=== PATIENT | male | born 1945 | race Two or more races ===

== ENCOUNTER → 2017-11-09 16:26 | Outpatient (CLI) | payer OTHER | END | disposition home or self-care (01) | LOC: LAB 16:26 | DX: R97.20 Elevated prostate specific antigen [PSA] (principal) ==

== ENCOUNTER 2017-12-21 07:09 | Outpatient (CLI) | payer OTHER | END 2017-12-21 07:20 | disposition home or self-care (01) | LOC: SONOGRAMA 07:09 | DX: R97.20 Elevated prostate specific antigen [PSA] (principal) ==

== ENCOUNTER 2018-06-14 15:35 | Outpatient (CLI) | payer OTHER | END 2018-06-14 16:05 | disposition home or self-care (01) | LOC: LAB 15:35 | DX: R97.20 Elevated prostate specific antigen [PSA] (principal) ==

== ENCOUNTER 2018-07-19 07:03 | Outpatient (CLI) | payer OTHER | END 2018-07-19 07:17 | disposition home or self-care (01) | LOC: SONOGRAMA 07:03 | DX: R97.20 Elevated prostate specific antigen [PSA] (principal) ==

== ENCOUNTER 2021-11-11 14:35 | Outpatient (CLI) | payer OTHER | END 2021-11-11 14:43 | disposition home or self-care (01) | LOC: LAB 14:35 | PROVIDERS: ATTEND Urology | DX: R97.20 Elevated prostate specific antigen [PSA] (principal) ==

== ENCOUNTER 2022-01-27 07:40 | Outpatient (CLI) | payer OTHER | END 2022-01-27 07:45 | disposition home or self-care (01) | LOC: SONOGRAMA 07:40 | PROVIDERS: ATTEND Urology | DX: R97.20 Elevated prostate specific antigen [PSA] (principal); N40.0 Benign prostatic hyperplasia without lower urinary tract symptoms; N42.89 Other specified disorders of prostate ==